=== PATIENT | male | born 2000 | race Two or more races ===

== ENCOUNTER 2020-02-28 16:17 | Emergency (ER) | payer BC, OTHER ==
[~2020-02-28] VITALS: Ht 170.2 cm; Wt 77.1 kg
[2020-02-28 16:38] VITALS: BP 128/74
== END 2020-02-28 16:47 | disposition left against medical advice (07) ==
LOC: EDBD 16:17 → ER 16:17
DX: M79.632 Pain in left forearm (principal); Z53.21 Procedure and treatment not carried out due to patient leaving prior to being seen by health care provider